=== PATIENT | female | born 1945 | race Caucasian/White ===

== ENCOUNTER → 2018-10-16 | Outpatient (CLI) | payer MEDICARE | LOC: COL.RAD 11:02 | DX: R10.12 Left upper quadrant pain (principal); R63.4 Abnormal weight loss; Z90.710 Acquired absence of both cervix and uterus | CPT/HCPCS: Q9967 ==

== ENCOUNTER 2018-11-12 14:21 | Inpatient (IN) | payer MEDICARE ==
[~2018-11-12] VITALS: Ht 157.5 cm; Wt 67.8 kg
[2018-11-12 15:37] LABS: BASO # 0.1 (0.0-0.2); BASO % 0.5 % (0.0-2.0); EOS % 0.3 % (0-4.0); GRAN # 9.4 (1.4-6.5); GRAN % 72.8 % (42.2-75.2); HEMATOCRIT 38.7 % (37.0-47.0); HEMOGLOBIN 12.8 g/dl (12.5-16.0); LYMPH # 2.6 (1.2-3.4); LYMPH % 20.1 % (20.0-51.0); MEAN CELL VOLUME 96 fl (80.0-100.0); MEAN CORPUSCULAR HEMOGLOBIN 32 pg (27.0-31.0); MEAN CORPUSCULAR HGB CONC 33 g/dl (33.0-37.0); MEAN PLATELET VOLUME 10.3 fl (7.4-10.4); MONO # 0.8 (0.1-0.6); MONO % 5.9 % (1.7-9.3); PLATELET COUNT 353 K/mm3 (130-400); RED BLOOD COUNT 4.02 M/mm3 (4.10-5.30); REDCELL DISTRIBUTION WIDTH-CV 14.6 % (11.5-14.5)
[2018-11-12 15:48] LABS: ALANINE AMINOTRANSFERASE 36 U/L (9-52); ALBUMIN 3.3 gm/dL (3.5-5.0); ALKALINE PHOSPHATASE 76 U/L (50-136); ANION GAP 9 mmol/L (7-16); AST,SGOT 45 U/L (15-37); BILIRUBIN,TOTAL 0.8 mg/dL (0.0-1.0); BLOOD UREA NITROGEN 22 mg/dL (7-17); CALCIUM 8.8 mg/dL (8.4-10.2); CARBON DIOXIDE 32 mmol/L (22-30); CHLORIDE 99 mmol/L (98-107); CREATININE, serum 0.78 (0.52-1.25); GLUCOSE 95 mg/dL (74-106); SODIUM 141 mmol/L (137-145); TOTAL PROTEIN 6.3 gm/dL (6.4-8.2)
[2018-11-12 15:50] LABS: POTASSIUM 2.7 mmol/L (3.4-5.0)
[2018-11-12 16:01] LABS: TROPONIN-I < 0.012 ng/mL (0.000-0.035)
[2018-11-12] MEDS ORDERED: LIPITOR 40MG TA40 MG PO (16:14)
[2018-11-12] MEDS ORDERED: PRILOTC (16:14)
[2018-11-12] MEDS ORDERED: PRINIVIL20 MG PO (16:14)
[2018-11-12 18:02] LABS: COLLECTION METHOD CATHETER
[2018-11-12 18:08] VITALS: BP 146/64; PULSE 79; TEMP 97.4
[2018-11-12 18:12] LABS: MUCOUS Present /lpf; PH 5 (5-8); SQUAMOUS EPITHELIAL 0-2 /hpf; URINE APPEARANCE Cloudy; URINE BACTERIA Rare /hpf; URINE BILIRUBIN Negative (NEGATIVE); URINE BLOOD 1+ (NEGATIVE); URINE COLOR Yellow; URINE GLUCOSE Negative (NEGATIVE); URINE KETONE 1+ (NEGATIVE); URINE LEUKOCYTE ESTERASE 2+ (NEGATIVE); URINE NITRATE Positive (NEGATIVE); URINE PROTEIN(semi-quant) 1+ (NEGATIVE); URINE UROBILINOGEN Negative (NEGATIVE)
--- NOTE | 2018-11-12 18:12 | NUR ---
PT ADMITTED TO FLOOR AT THIS TIME.
[2018-11-12 19:14] VITALS: BP 133/53; PULSE 73
[2018-11-12 19:22] LABS: PRE ALBUMIN 16.6 mg/dL (17.6-36.0)
--- NOTE | 2018-11-12 19:40 | NUR ---
Pt's family visitng in rm, so 5 pg assessment can be done. Pt and pt's family oriented to rm, call light, bed button and room service. Call light in reach.
--- NOTE | 2018-11-12 19:43 | NUR ---
REPORT RECEIVED FROM ALICE SOMMER. PT TRANSFERED FROM ER AROUND [address] BRAUN IN PT'S ROOM TO ASSESS. PT ALERT AND CONFUSED AND UNABLE TO PROVIDE 5PG ADMISSION HX. NO FAMILY AVAILABLE AT THIS TIME. CALL LIGHT IN REACH. BED ALARM ON.
--- NOTE | 2018-11-12 21:25 | NUR ---
Pt's family left and pt trying to sleep. All the light turned off. Call light in reach.
--- NOTE | 2018-11-12 22:02 | NUR ---
VISIT ATTMPTED AND PT SLEEPINGS SOUNDLY IN BED. CALL LIGHT IN REACH.
[2018-11-12 23:27] VITALS: BP 146/63; PULSE 74; TEMP 98.2
--- NOTE | 2018-11-12 23:30 | NUR ---
VISIT ATTEMPTED AND PT SLEEPING SOUNDLY IN BED. CALL LIGHT IN REACH.
--- NOTE | 2018-11-13 00:43 | NUR ---
REPORT GIVEN TO ALICE PETERSON.
--- NOTE | 2018-11-13 00:52 | NUR ---
Report recieved from Mica JENKINS to assume pt cares. Pt resting in bed awake, alert, oriented to person/place but is forgetfull et slow to respond to questions. Cooperative c cares. Previous assessment agreed upon. Pt c/o low back pain at this time, unable to rate, describes as "bad" et states "because I've fallen so much"; PRN pain medical record coder per pt req et pt provided c hot blanket. Denies further needs at this time. Call light in reach, bed alarm on. Will continue to monitor.
[2018-11-13 03:07] VITALS: BP 140/62; PULSE 76; TEMP 97.2
[2018-11-13 07:02] LABS: BASO # 0.1 (0.0-0.2); BASO % 0.4 % (0.0-2.0); EOS # 0.1 (0.0-0.7); EOS % 0.7 % (0-4.0); GRAN # 10.5 (1.4-6.5); GRAN % 77.3 % (42.2-75.2); LYMPH # 2.1 (1.2-3.4); LYMPH % 15.4 % (20.0-51.0); MEAN CELL VOLUME 95 fl (80.0-100.0); MEAN CORPUSCULAR HEMOGLOBIN 32 pg (27.0-31.0); MEAN CORPUSCULAR HGB CONC 34 g/dl (33.0-37.0); MEAN PLATELET VOLUME 10.9 fl (7.4-10.4); MONO # 0.8 (0.1-0.6); MONO % 5.6 % (1.7-9.3); PLATELET COUNT 320 K/mm3 (130-400); RED BLOOD COUNT 3.45 M/mm3 (4.10-5.30); REDCELL DISTRIBUTION WIDTH-CV 14.5 % (11.5-14.5)
--- NOTE | 2018-11-13 07:15 | NUR ---
Report received from ALICE Mccartney. Pt in bed resting with eyes closed, will continue to monitor.
[2018-11-13 07:21] LABS: CREATININE, serum 0.64 (0.52-1.25); HEMATOCRIT 32.8 % (37.0-47.0)
[2018-11-13 07:25] LABS: POTASSIUM 2.6 mmol/L (3.4-5.0)
[2018-11-13 08:01] VITALS: BP 124/63; PULSE 70; TEMP 98.1
--- NOTE | 2018-11-13 08:41 | NUR ---
Assessment charted. Pt resting in bed, able to answer all orientation questions appropriately but speech is delayed from Parkinsons. Pt resting in bed, states she gets up at home with a wheeled walker to get around the house. Will encourage working with PT/OT today. ST saw and evaluated for swallowing capability and no issues found. Discussed potassium levels and need to drink 4 effervescent drinks today, pt preferred prune juice to start. Low back pain, lidocaine patch applied to area of discomfort. IVF to LW. Will continue to monitor.
--- NOTE | 2018-11-13 09:00 | NUR ---
Initial visit; Patient appeared somewhat detatched but thanked [employer] who wished her well and offered God's blessings.
[2018-11-13 12:03] VITALS: BP 125/68; PULSE 68; TEMP 98.5
--- NOTE | 2018-11-13 13:05 | NUR ---
SW attended clinical rounds to discuss discharge planning. Patient lives at home with her . Patient's PCP is Dr Frazier and medications are obtain from [facility]. Patient uses a walker at home and no home health services. Patient will be seen by PT/OT. Patient spoke to Cesia from Dr Frazier's office. She reports patient and have been resistant to obtaining any home health services, respite stays at a nursing facility, and case management services through [facility]. CHUY reported that once PT/OT sees patient, she will follow up with patient about post acute rehab.
[2018-11-13 16:05] VITALS: BP 125/58; PULSE 72; TEMP 98
--- NOTE | 2018-11-13 17:30 | NUR ---
Patient sitting up in bed eating dinner. A&O. VSS. IV CDI, fluids infusing. Patients brief changed and a stage 2 pressure ulcer noted. Patient positioned on left side with pillow. No further needs expressed from patient. Call light within reach. Bed alarm on
[2018-11-13 19:03] VITALS: BP 127/66; PULSE 73; TEMP 98.5
--- NOTE | 2018-11-13 20:25 | NUR ---
Shift assessment complete. Pt resting in bed, awake, a&o but frequently forgetfull, cooperative c cares. Pt reports continued c/o low back pain; PRN [place] admin per pt request. Denies any other c/o at this time. INT patent. Pt denies further needs. Call light in reach, bed alarm on. Will monitor.
[2018-11-13 23:12] VITALS: BP 138/71; PULSE 70; TEMP 98
[2018-11-14] VITALS (12 sets, daily range): BP systolic 111–157; BP diastolic 50–95; PULSE 76–96; TEMP 97.6–99.2
[2018-11-14 08:50] LABS: BASO # 0.1 (0.0-0.2); BASO % 0.5 % (0.0-2.0); EOS # 0.1 (0.0-0.7); EOS % 0.9 % (0-4.0); GRAN # 8.5 (1.4-6.5); HEMOGLOBIN 11.5 g/dl (12.5-16.0); LYMPH # 1.9 (1.2-3.4); LYMPH % 16.4 % (20.0-51.0); MEAN CELL VOLUME 94 fl (80.0-100.0); MEAN CORPUSCULAR HEMOGLOBIN 32 pg (27.0-31.0); MEAN CORPUSCULAR HGB CONC 34 g/dl (33.0-37.0); MEAN PLATELET VOLUME 10.1 fl (7.4-10.4); MONO # 0.7 (0.1-0.6); MONO % 6.5 % (1.7-9.3); PLATELET COUNT 308 K/mm3 (130-400); RED BLOOD COUNT 3.59 M/mm3 (4.10-5.30); REDCELL DISTRIBUTION WIDTH-CV 14.6 % (11.5-14.5)
[2018-11-14 08:58] LABS: HEMATOCRIT 33.7 % (37.0-47.0)
[2018-11-14 09:06] LABS: CALCIUM 7.9 mg/dL (8.4-10.2); CREATININE, serum 0.52 (0.52-1.25); MAGNESIUM 1.8 mg/dL (1.6-2.3); POTASSIUM 4.6 mmol/L (3.4-5.0)
--- NOTE | 2018-11-14 13:15 | NUR ---
Patient back from procedure at this time. Charge nurse Dolores accepted patient while this nurse was in meeting. Post op vitals started. Patient stable at this time, alert.
--- NOTE | 2018-11-14 14:42 | NUR ---
CHUY followed up with patient and daughter about post acute rehab. SW provided medicare.gov resource list. SW explained the purpose of a skilled stay. Patient reports she would like to speak with her . CHUY will follow up later this afternoon.
--- NOTE | 2018-11-14 15:52 | NUR ---
SW followed up with patient and family about SNF choice. Patient and reviewed medicare.gov resource list. Patient and chose 1. [facility] 2. [facility] SW presented choice form to patient. SW contacted and faxed referrals to both facilities.
--- NOTE | 2018-11-14 15:56 | NUR ---
Pt assessment completed & charted. Pt had EGD earlier this afternoon. Abx administered per MAR this morning. LWR IV patent, flushing w/ no complications. Pt on room air. Pt alert, partially oriented to day, bdate, place, month. Occassional confused conversation thinking she is "on campus". Awoke from nap prior to procedure wondered if she "missed her appointment". Pt slow to respond to some questions this morning. This afternoon pt has been more talkative. Post op vitals stable, tolerating liquids and applesauce. Pt has been repositioned multiple times today. Repositioned bed to chair position. Pt has ulcer/closed sore on right miles, reddened. BLE tenderness. Coccyx has stage 1 ulcer, reddened, small open spot, covered with mepalex. Under rt buttcheek in crease, reddened, barrier cream applied. Pt has not BM today, using bedpan. No other needs at this time. Call light within reach.
--- NOTE | 2018-11-14 19:03 | NUR ---
Report given to ALICE Mccartney to resume cares. No complaints.
--- NOTE | 2018-11-14 20:25 | NUR ---
Shift assessment complete. Pt resting in bed, awake, alert, oriented to person/place but c frequent confused/forgetfull statements. Pt remains able to communicate needs, cooperative c cares. Reports continued back pain "from falling"; PRN Blair admin c HS meds per pt request. INT patent. Pt denies further needs. Call light in reach, bed alarm on. Will monitor.
[2018-11-15 03:48] VITALS: BP 138/77; PULSE 90; TEMP 98.5
[2018-11-15 06:47] LABS: BASO # 0.1 (0.0-0.2); BASO % 0.6 % (0.0-2.0); EOS # 0.2 (0.0-0.7); GRAN # 6.9 (1.4-6.5); HEMOGLOBIN 11.2 g/dl (12.5-16.0); LYMPH # 1.8 (1.2-3.4); LYMPH % 18.1 % (20.0-51.0); MEAN CELL VOLUME 96 fl (80.0-100.0); MEAN CORPUSCULAR HEMOGLOBIN 32 pg (27.0-31.0); MEAN CORPUSCULAR HGB CONC 33 g/dl (33.0-37.0); MEAN PLATELET VOLUME 10.9 fl (7.4-10.4); MONO # 0.8 (0.1-0.6); MONO % 8.4 % (1.7-9.3); PLATELET COUNT 282 K/mm3 (130-400); RED BLOOD COUNT 3.52 M/mm3 (4.10-5.30); REDCELL DISTRIBUTION WIDTH-CV 14.7 % (11.5-14.5)
[2018-11-15 06:51] LABS: HEMATOCRIT 33.6 % (37.0-47.0)
[2018-11-15 06:55] VITALS: BP 141/62; PULSE 75; TEMP 98.4
[2018-11-15 07:06] LABS: ALBUMIN 2.5 gm/dL (3.5-5.0); BILIRUBIN,TOTAL 0.4 mg/dL (0.0-1.0); CREATININE, serum 0.51 (0.52-1.25); MAGNESIUM 1.7 mg/dL (1.6-2.3); PHOSPHOROUS 3.4 mg/dL (2.5-4.5); POTASSIUM 3.5 mmol/L (3.4-5.0); TOTAL PROTEIN 5.1 gm/dL (6.4-8.2)
--- NOTE | 2018-11-15 09:00 | NUR ---
PT RECIEVING IV KCL TO LT WRIST. IV FLUID STINGING AT AFTER SECOND BAG STARTED. PT UNABLE TO TOLERATE NS WHEN ATTEMPTED TO DILUTE. IV SITE HAS SOME NOTED SWELLING AND SLIGHT REDNESS AROUND IV CATHETER. THIS NURSE REMOVED IV. THIS NURSE WILL CHECK WITH HOSPITALIST AND SEE IF NEW IV NEEDS TO BE INITIATED.
[2018-11-15] MEDS ORDERED: PROBIOTIC ACID1 EAC3 PO (10:47)
[2018-11-15] MEDS ORDERED: OMNICEF 300MG300 MG PO (10:48)
[2018-11-15] MEDS ORDERED: ZOFRAN ODT4 MG PO (10:58)
[2018-11-15] MEDS ORDERED: PRIL40 PO (10:58)
[2018-11-15] MEDS ORDERED: CARAFATE S1 GM/10 ML PO (11:00)
[2018-11-15 11:43] VITALS: BP 143/61; PULSE 98; TEMP 97.3
--- NOTE | 2018-11-15 12:00 | NUR ---
FAMILY AT BEDSIDE. EDUCATED THAT PT WILL BE GOING TO [facility] AT 1500. PT VOICED NO QUESTIONS OR CONSERNS.
--- NOTE | 2018-11-15 13:05 | NUR ---
Patient was accepted to [facility] for mcfp, PT, OT. CHUY met with patient and family about discharge today 11/15. SW presented IM to patient and daughter. Patient signed but did not want a copy. Transportation was arranged for 3pm and SW faxed discharge orders.
--- NOTE | 2018-11-15 15:00 | NUR ---
PT RECIEVED [facility] AT THIS TIME C/O BACK PAIN. [facility] STAFF HERE TO TAKE PT TO FACILITY. PT BELONGINGS HAVE BEEN GATHERED. PT ASSISTED TO W/C BY 2 DIRECT SUPPORT STAFF MEMBER'S, PT TRANSFERED WELL. NO ISSUES OR CONSERNS VOICED.
--- NOTE | 2018-11-15 15:15 | NUR ---
[facility]. PT INFOMATION SENT WITH TRANSPORT PERSONALLE.
== END 2018-11-15 15:20 | DRG 603 ==
LOC: COL.ER 14:21 → MEDICAL 17:07
PROVIDERS: Emergency Medicine; Family Medicine; Physician Assistant; ADMIT Family Medicine
DX: L03.115 Cellulitis of right lower limb (principal); G91.9 Hydrocephalus, unspecified; E46 Unspecified protein-calorie malnutrition; N39.0 Urinary tract infection, site not specified; G20 Parkinson's disease; E78.5 Hyperlipidemia, unspecified; I10 Essential (primary) hypertension; K21.9 Gastro-esophageal reflux disease without esophagitis; Z66 Do not resuscitate; E87.6 Hypokalemia; Z68.27 Body mass index [BMI] 27.0-27.9, adult; K30 Functional dyspepsia; K29.70 Gastritis, unspecified, without bleeding; K58.1 Irritable bowel syndrome with constipation
CPT/HCPCS: 99222-AI; 99233-AI; 99239; A4216; J0690; J0696; J1650; J2250; J3010; J3475; J3480; J7030

== ENCOUNTER → 2020-06-22 | Outpatient (CLI) | payer MEDICARE ==
[~2020-06-22] MED LIST: CARAFATE S1 GM/10 ML PO; LIPITOR 40MG TA40 MG PO; OMNICEF 300MG300 MG PO; PRIL40 PO; PRILOTC; PRINIVIL20 MG PO; PROBIOTIC ACID1 EAC3 PO; ZOFRAN ODT4 MG PO
[2020-06-22 20:47] LABS: COLLECTION METHOD CLEAN CATCH
[2020-06-22 21:02] LABS: MUCOUS Present /lpf; PH 5 (5-8); SQUAMOUS EPITHELIAL 0-2 /hpf; URINE APPEARANCE Cloudy; URINE BACTERIA Rare /hpf; URINE BILIRUBIN Negative (NEGATIVE); URINE BLOOD 2+ (NEGATIVE); URINE COLOR Yellow; URINE GLUCOSE Negative (NEGATIVE); URINE KETONE Negative (NEGATIVE); URINE LEUKOCYTE ESTERASE 2+ (NEGATIVE); URINE NITRATE Negative (NEGATIVE); URINE PROTEIN(semi-quant) 1+ (NEGATIVE); URINE RBC >50 /hpf; URINE UROBILINOGEN Negative (NEGATIVE); URINE WBC >50 /hpf
== END ==
LOC: ZCOL.LAB 20:12
PROVIDERS: Family Medicine
DX: Z01.89 Encounter for other specified special examinations (principal)